=== PATIENT | male | born 1995 | race African-American/Black ===

== ENCOUNTER 2016-12-27 10:27 | Emergency (ER) | payer OTHER ==
--- NOTE | 2016-12-27 12:03 | ED Physician Documentation ---
PD HPI UPPER EXT INJURY - Stated complaint Stated Complaint: LT ARM PX - Chief complaint Chief Complaint: Ext Problem - History obtained from History obtained from: Patient - History of Present Illness Location: Left, Forearm Type of injury: Other (denies recent reptitive use.). No: Fall, Twist, Blunt / blow Timing - onset: How many days ago (3) Timing - duration: Days (3) Timing - details: Gradual onset, Still present (worsening) Worsened by: Moving, Palpating (skin sensitive and feels burning. Tender to touch. 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 No: Swelling, Discolored Similar symptoms before: Has not had sx before Recently seen: Not recently seen Review of Systems Constitutional: denies: Fever, Chills Throat: denies: Sore throat Skin: denies: Rash, Lesions Musculoskeletal: denies: Neck pain, Back pain Neurologic: reports: Focal weakness, Numbness (left anterior forearm and down to little/ring fingers.). denies: Generalized weakness, Near syncope, Headache , Head injury PD PAST MEDICAL HISTORY - Past Medical History Cardiovascular: None Respiratory: Asthma HEENT: None Musculoskeletal: None - Past Surgical History Past Surgical History: No - Present Medications Home Medications: Ambulatory Orders Medication Instructions Recorded Confirmed Dexamethasone [Decadron] 4 mg PO DAILY #5 tablet 12/27/16 Ibuprofen [Motrin] 600 mg PO TID #20 tab 12/27/16 Tramadol HCl 50 mg PO Q6H PRN #20 tablet 12/27/16 - Allergies Allergies/Adverse Reactions: Allergies Allergy/AdvReac Type Severity Reaction Status Date / Time No Known Drug Allergies Allergy Verified 12/27/16 10:34 - Social History Does the pt smoke?: No Smoking Status: Never smoker Does the pt drink ETOH?: No Does the pt have substance abuse?: No - Immunizations Immunizations are current?: Yes - POLST Patient has POLST: No PD ED PE NORMAL - Vitals Vital signs reviewed: Yes - General General: Alert and oriented X 3, No acute distress, Well developed/nourished - HEENT HEENT: Pharynx benign - Neck Neck: Supple, no meningeal sign, No bony TTP, No adenopathy - Cardiac Cardiac: RRR, No murmur - Respiratory Respiratory: Clear bilaterally - Derm Derm: Normal color, Warm and dry, No rash - Extremities Extremities: No edema, Other (left forearm with tenderness to palpation deeper to muscles and also to light touch of skin, causing burning feeling. No rash nor sores. No redness/warmth. elbow and shoulder without swelling, tenderness, and both have good ROM. ) - Neuro Neuro: No motor deficit, Other (less sensation to touch in little and ring fingers as well as ulnar side palm. No edema in fingers. Good color and cap refill. ) Results - Vitals Vitals: Vital Signs - 24 hr 12/27/16 12/27/16 12/27/16 10:31 13:09 14:00 Temperature 36.5 C 37.0 C 36.4 C L Heart Rate 54 L 64 64 Respiratory 14 20 14 Rate Blood Pressure 140/85 H 122/70 124/84 H O2 Saturation 100 99 100 Oxygen O2 Source Room air - Labs Labs: Laboratory Tests 12/27/16 12/27/16 12/27/16 12:30 12:30 12:30 WBC 5.7 RBC 5.03 Hgb 14.5 Hct 43.7 MCV 86.8 MCH 28.8 MCHC 33.1 RDW 14.0 Plt Count 240 MPV 8.2 Neut # 3.3 Lymph # 1.8 [place] # 0.5 Eos # 0.1 Baso # 0.0 Absolute Nucleated RBC 0.00 Nucleated RBCs 0.0 ESR 1 Sodium 139 Potassium 3.7 Chloride 104 Carbon Dioxide 30 Anion Gap 5.0 L BUN 11 Creatinine 0.9 Estimated GFR (MDRD) 129 Glucose 103 H Calcium 9.6 Total Bilirubin 1.2 H AST 23 ALT 20 Alkaline Phosphatase 66 Total Creatine Kinase 166 C-Reactive Protein < 1.0 Total Protein 7.3 Albumin 4.8 Globulin 2.5 Albumin/Globulin Ratio 1.9 Lipase 28 - Rads (name of study) forearm Radiology: Prelim report reviewed, EMP read contemporaneously (no fractures nor bony abnormalities. ) PD MEDICAL DECISION MAKING - ED course Complexity details: considered differential (ineresting to have focal area of pain, skin sensitive, and muscle pain in forearm and ulnar nerve numbness to fingers, without pain in elbow nor shoulder nor neck. CK normal so no muscle breakdown. ESR/CRP normal. WBC normal. Xray normal though was likely to be. with normal tests, presume is some tendonitis with local nerve irritation. To watch for other symptoms such as rash, fevers, sores, etc. ), d/w patient Departure - Departure Disposition: 01 Home, Self Care Clinical Impression: Left forearm pain, Neuropraxia of left ulnar nerve, Forearm tendonitis Condition: Stable Record reviewed to determine appropriate education?: Yes Prescriptions: Dexamethasone [Decadron] 4 mg PO DAILY #5 tablet Ibuprofen [Motrin] 600 mg PO TID #20 tab Tramadol HCl 50 mg PO Q6H PRN #20 tablet PRN Reason: Pain Comments: Wrist brace much of the time for the next week. Ibuprofen 3 times daily. Decadron daily for 5 days also for inflammation. Add Tylenol and Tramadol as needed for pain. Recheck if not better in the next 3-5 days. At this point, I presume it is some inflammation of the muscle and nerve in the forearm ( tendonitis and then causing nerve irritation). Discharge Date/Time: 12/27/16 14:00
[2016-12-27] MEDS ORDERED: HYDROcod/ACETAM 5/325 MG TABLET PO STA (12:19)
[2016-12-27] MEDS ORDERED: IBUPROFEN 600 MG TABLET PO STA (12:19)
[2016-12-27] MEDS ORDERED: DEXAMETHASONE 10 MG/ML VIAL PO STA (12:19)
[2016-12-27] MEDS ORDERED: DEXAMETHASONE 10 MG/ML VIAL ONE (12:27)
[2016-12-27] MEDS ORDERED: CHERRY SYRUP 10 ML UDC PO ONE (12:27)
[2016-12-27] MEDS ORDERED: IBUPROFEN 600 MG TABLET PO ONE (12:27)
[2016-12-27 12:43] LABS: BASOPHILS % (AUTO) 0.5 %; EOSINOPHILS # (AUTO) 0.1 10^3/uL (0.0-0.7); EOSINOPHILS % (AUTO) 1.2 %; HCT - HEMATOCRIT 43.7 % (42.0-52.0); HGB - HEMOGLOBIN 14.5 g/dL (14.0-18.0); LYMPHOCYTES # (AUTO) 1.8 10^3/uL (1.5-3.5); LYMPHOCYTES % (AUTO) 31.1 %; MEAN CORPUSCULAR HEMOGLOBIN 28.8 pg (27.0-31.0); MEAN CORPUSCULAR HGB CONC 33.1 g/dL (32.0-36.0); MEAN CORPUSCULAR VOLUME 86.8 fL (80.0-94.0); MEAN PLATELET VOLUME 8.2 fL (7.4-11.4); MONOCYTES # (AUTO) 0.5 10^3/uL (0.0-1.0); MONOCYTES % (AUTO) 8.1 %; NEUTROPHILS # (AUTO) 3.3 10^3/uL (1.5-6.6); NEUTROPHILS % (AUTO) 59.1 %; RED BLOOD COUNT 5.03 10^6/uL (4.70-6.10); UNCORRECTED WHITE BLOOD COUNT 5.7 x10^3/uL; WHITE BLOOD COUNT 5.7 x10^3/uL (4.8-10.8)
[2016-12-27 12:59] LABS: ALBUMIN/GLOBULIN RATIO 1.9 (1.0-2.2); BILIRUBIN,TOTAL 1.2 mg/dL (0.2-1.0); BUN - BLOOD UREA NITROGEN 11 mg/dL (6-20); CALCIUM 9.6 mg/dL (8.5-10.3); CARBON DIOXIDE - CO2 30 mmol/L (21-32); CHLORIDE 104 mmol/L (101-111); CREATININE 0.9 mg/dL (0.6-1.2); GFR - MDRD 129 (>89); GLUCOSE 103 mg/dL (70-100); LIPASE 28 U/L (22-51); POTASSIUM 3.7 mmol/L (3.5-5.0); SODIUM 139 mmol/L (135-145); TOTAL PROTEIN 7.3 g/dL (6.7-8.2)
[2016-12-27 14:02] VITALS: BP 124/84
--- NOTE | 2016-12-27 14:18 | XRAY Preliminary Report ---
Exam: XR Forearm LT IMPRESSION: Normal forearm radiography. [facility] SITE ID: [id number]
--- NOTE | 2016-12-27 14:20 | XRAY Report ---
EXAM: LEFT FOREARM RADIOGRAPHY EXAM DATE: 12/27/2016 01:00 PM. CLINICAL HISTORY: Left forearm pain. No known injury. COMPARISON: None. TECHNIQUE: 2 views. FINDINGS: Bones: Normal. No fractures or bone lesions. Joints: Normal alignment of the wrist and elbow as visualized. No evident elbow effusion. Soft Tissues: Normal. No soft tissue swelling. IMPRESSION: Normal forearm radiography. [facility] Referring Provider Line: [phone] SITE ID: [id number]
== END 2016-12-27 14:00 | disposition home or self-care (01) ==
LOC: ED 10:27
DX: M79.632 Pain in left forearm (principal); M77.9 Enthesopathy, unspecified; S54.02XA Injury of ulnar nerve at forearm level, left arm, initial encounter; X58.XXXA Exposure to other specified factors, initial encounter
CPT/HCPCS: 36415; 73090; 80053; 82550; 83690; 85025; 85651; 86140; 99283; A9270

== ENCOUNTER 2017-12-08 00:05 | Outpatient (CLI) | payer OTHER | END 2017-12-08 00:06 | disposition critical access hospital (66) | LOC: EMS 00:05 | PROVIDERS: ATTEND Surgery | DX: R40.20 Unspecified coma (principal); R06.81 Apnea, not elsewhere classified | CPT/HCPCS: A0425; A0427 ==

== ENCOUNTER 2017-12-08 00:20 | Emergency (ER) | payer OTHER ==
[2017-12-08] MEDS ORDERED: NALOXONE 0.4 MG/ML VIAL ONE (00:32)
[2017-12-08 00:52] LABS: BASOPHILS # (AUTO) 0.1 10^3/uL (0.0-0.1); BASOPHILS % (AUTO) 0.5 %; EOSINOPHILS # (AUTO) 0.1 10^3/uL (0.0-0.7); EOSINOPHILS % (AUTO) 0.6 %; HGB - HEMOGLOBIN 13.9 g/dL (14.0-18.0); LYMPHOCYTES # (AUTO) 2.3 10^3/uL (1.5-3.5); LYMPHOCYTES % (AUTO) 15.6 %; MEAN CORPUSCULAR HEMOGLOBIN 29.7 pg (27.0-31.0); MEAN CORPUSCULAR HGB CONC 32.8 g/dL (32.0-36.0); MEAN CORPUSCULAR VOLUME 90.4 fL (80.0-94.0); MONOCYTES # (AUTO) 0.5 10^3/uL (0.0-1.0); MONOCYTES % (AUTO) 3.4 %; NEUTROPHILS # (AUTO) 11.7 10^3/uL (1.5-6.6); NEUTROPHILS % (AUTO) 79.9 %; PLT - PLATELET COUNT 212 10^3/uL (130-450); RED BLOOD COUNT 4.68 10^6/uL (4.70-6.10); RED CELL DISTRIBUTION WIDTH 14.1 % (12.0-15.0); WHITE BLOOD COUNT 14.7 x10^3/uL (4.8-10.8)
[2017-12-08 00:57] LABS: ALBUMIN 3.8 g/dL (3.2-5.5); ALBUMIN/GLOBULIN RATIO 1.5 (1.0-2.2); ALKALINE PHOSPHATASE 58 IU/L (42-121); ALT ALANINE AMINOTRANSFERASE 32 IU/L (10-60); AST ASPARTATE AMINOTRANSFERASE 43 IU/L (10-42); BILIRUBIN,TOTAL 0.7 mg/dL (0.2-1.0); BUN - BLOOD UREA NITROGEN 10 mg/dL (6-20); CALCIUM 8.2 mg/dL (8.5-10.3); CARBON DIOXIDE - CO2 27 mmol/L (21-32); CHLORIDE 106 mmol/L (101-111); GFR - MDRD 114 (>89); GLUCOSE 147 mg/dL (70-100); LIPASE 28 U/L (22-51); SALICYLATE < 6.0 mg/dL; SODIUM 139 mmol/L (135-145); TOTAL PROTEIN 6.3 g/dL (6.7-8.2)
[2017-12-08 00:58] LABS: ACETAMINOPHEN < 10 ug/mL (10-30)
--- NOTE | 2017-12-08 02:30 | ED Physician Documentation ---
PD HPI OVERDOSE - Stated complaint Stated Complaint: OD - Chief complaint Chief Complaint: MHE - History obtained from History obtained from: EMS - History of Present Illness Timing - onset: Today Subtance(s) ingested: Multiple, Narcotic, Benzo Associated symptoms: Resp depression, Unresponsive. No: Cardiac arrest Contributing factors: Accidental Treatment [employer]ER: Narcan Similar symptoms before: Has not had sx before Recently seen: Not recently seen - Additional information Additional information: Patient is a 21 year old male brought in by ems for overdose. According to ems police were called by patient's friends because he became unresponsive. When police arrived patient was not breathing. ems arrived and was about to intubate but gave narcan and the patient began to awake. Patient reportedly took fentanyl and xanax. Review of Systems Unable to obtain: Unresponsive PD PAST MEDICAL HISTORY - Past Medical History Cardiovascular: None Respiratory: Asthma HEENT: None Musculoskeletal: None - Past Surgical History Past Surgical History: No - Present Medications Home Medications: Ambulatory Orders Medication Instructions Recorded Confirmed Dexamethasone [Decadron] 4 mg PO DAILY #5 tablet 12/27/16 Ibuprofen [Motrin] 600 mg PO TID #20 tab 12/27/16 Tramadol HCl 50 mg PO Q6H PRN #20 tablet 12/27/16 - Allergies Allergies/Adverse Reactions: Allergies Allergy/AdvReac Type Severity Reaction Status Date / Time No Known Drug Allergies Allergy Verified 12/08/17 00:30 - Social History Does the pt smoke?: No Smoking Status: Never smoker Does the pt drink ETOH?: No Does the pt have substance abuse?: Yes Substance Use and Type: Marijuana, Other - Immunizations Immunizations are current?: Yes - POLST Patient has POLST: No PD ED PE NORMAL - Vitals Vital signs reviewed: Yes - General General: Well developed/nourished - HEENT HEENT: Atraumatic - Neck Neck: Supple, no meningeal sign - Cardiac Cardiac: RRR, No murmur - Respiratory Respiratory: No respiratory distress - Abdomen Abdomen: Soft, Non distended - Derm Derm: Normal color, No rash - Extremities Extremities: No deformity PD ED PE EXPANDED - GCS Eye Opening: To Pain Motor: Withdraws to Pain Verbal: Confused Total: 10 Results - Vitals Vitals: Vital Signs - 24 hr 12/08/17 12/08/17 12/08/17 00:21 00:41 01:58 Temperature 36 C L Heart Rate 94 88 86 Respiratory 28 H 18 20 Rate Blood Pressure 103/73 107/76 105/56 L O2 Saturation 88 L 98 92 12/08/17 12/08/17 02:45 03:28 Temperature Heart Rate 81 80 Respiratory 18 18 Rate Blood Pressure 94/64 100/64 O2 Saturation 94 95 Oxygen O2 Source Room air - Labs Labs: Laboratory Tests 12/08/17 12/08/17 12/08/17 00:35 00:35 04:15 WBC 14.7 H RBC 4.68 L Hgb 13.9 L Hct 42.3 MCV 90.4 MCH 29.7 MCHC 32.8 RDW 14.1 Plt Count 212 MPV 8.0 Neut # 11.7 H Lymph # 2.3 [place] # 0.5 Eos # 0.1 Baso # 0.1 Absolute Nucleated RBC 0.00 Nucleated RBC % 0.0 Sodium 139 Potassium 3.8 Chloride 106 Carbon Dioxide 27 Anion Gap 6.0 BUN 10 Creatinine 1.0 Estimated GFR (MDRD) 114 Glucose 147 H Calcium 8.2 L Total Bilirubin 0.7 AST 43 H ALT 32 Alkaline Phosphatase 58 Total Protein 6.3 L Albumin 3.8 Globulin 2.5 Albumin/Globulin Ratio 1.5 Lipase 28 Salicylates < 6.0 Urine Opiates Screen NEGATIVE Ur Oxycodone Screen NEGATIVE Urine Methadone Screen NEGATIVE Ur Propoxyphene Screen NEGATIVE Acetaminophen < 10 L Ur Barbiturates Screen NEGATIVE Ur Tricyclics Screen NEGATIVE Ur Phencyclidine Scrn NEGATIVE Ur Amphetamine Screen NEGATIVE U Methamphetamines Scrn NEGATIVE U Benzodiazepines Scrn POSITIVE H Urine Cocaine Screen NEGATIVE U Cannabinoids Screen POSITIVE H Ethyl Alcohol < 5.0 PD MEDICAL DECISION MAKING - ED course Complexity details: reviewed old records, reviewed results, re-evaluated patient , considered differential, d/w patient ED course: Patient was seen and examined at bedside. labs were drawn. patient was treated with supplemental oxygen. patient was maintaining his own airway and was arousable. patient was treated with supplemental oxygen. patient's tox screen was negative for opiates, and he is not the only person who has presented recently with an opiate toxidrome but negative drug screen. patient was observed overnight. In the morning patient was awake, alert and oriented. Patient was able to attend to conversation and ambulate without difficulty. Patient required no further work up and was stable for discharge with outpatient follow up. Departure - Departure Disposition: 01 Home, Self Care Clinical Impression: Accidental drug overdose Condition: Good Instructions: ED Overdose Accidental Follow-Up: primary,care provider [Other] - Within 3 Days Comments: Your symptoms today were caused by a drug overdose. You almost and hopefully this is a wake-up call. [place] You should not be abusing drugs in generally but it if even riskier right now. You may return to the emergency department at any time for new, worsening or uncontrollable symptoms.
[2017-12-08 03:28] VITALS: BP 100/64
[2017-12-08 04:26] LABS: MUDS CUTOFF CONCENTRATIONS CUTOFF CONC BELOW:
[2017-12-08 04:48] LABS: AMPHETAMINE SCREEN,URINE NEGATIVE (NEGATIVE); BENZODIAZEPINES SCREEN, URINE POSITIVE (NEGATIVE); COCAINE SCREEN URINE NEGATIVE (NEGATIVE); METHADONE SCREEN, URINE NEGATIVE (NEGATIVE); METHAMPHETAMINES SCREEN, URINE NEGATIVE (NEGATIVE); OPIATE SCREEN, URINE NEGATIVE (NEGATIVE); OXYCODONE SCREEN, URINE NEGATIVE (NEGATIVE); PROPOXYPHENE SCREEN, URINE NEGATIVE (NEGATIVE); TRICYCLIC ANTIDEPRESSANT,URINE NEGATIVE (NEGATIVE)
== END 2017-12-08 05:28 | disposition home or self-care (01) ==
LOC: EDUNIT# → ED 00:20
DX: T42.4X1A Poisoning by benzodiazepines, accidental (unintentional), initial encounter (principal); T40.4X1A Poisoning by other synthetic narcotics, accidental (unintentional), initial encounter; J45.909 Unspecified asthma, uncomplicated
CPT/HCPCS: 36415; 80053; 80306; 80307; 80320; 80329; 83690; 85025; 99283; 99284

== ENCOUNTER 2017-12-13 16:03 | Emergency (ER) | payer OTHER ==
[2017-12-13 16:15] VITALS: BP 120/65
[2017-12-13] MEDS ORDERED: LORazepam 0.5 MG TABLET PO STA (16:36)
--- NOTE | 2017-12-13 16:38 | ED Physician Documentation ---
History of Present Illness - Stated complaint Stated Complaint: ANXIETY - Chief complaint Chief Complaint: General - History obtained from History obtained from: Patient, Family - History of Present Illness Timing: How many days ago (several days) Pain level max: 0 Pain level now: 0 Improved by: ativan in the past Worsened by: nothing - Treatment prior to arrival Treatment prior to arrival: Patient is a 22-year-old male who presents to the emergency department complaining of increasing anxiety for the past few weeks. This been worse over the past few days. He is accompanied by his mother today. Has a long-standing history of anxiety and was on Lexapro and Ativan when he was living in [place], but has now moved back here. He is still on Lexapro but does not have any Ativan. Has an appointment with his PCP in 9 days. He was also recently seen here for an accidental overdose of opiates. States that he took a friend's Percocet that was apparently laced with fentanyl. He denies any suicidal or homicidal ideation. Review of Systems Constitutional: denies: Fever, Chills Ears: denies: Ear pain Nose: denies: Rhinorrhea / runny nose, Congestion Throat: denies: Sore throat Cardiac: denies: Chest pain / pressure Respiratory: denies: Cough GI: denies: Nausea, Vomiting, Diarrhea Skin: denies: Rash Musculoskeletal: denies: Neck pain, Back pain Neurologic: denies: Headache Psychiatric: reports: Anxiety. denies: Depressed, Suicidal, Homicidal, Hallucinations, Delusions PD PAST MEDICAL HISTORY - Past Medical History Past Medical History: Yes Cardiovascular: None Respiratory: Asthma HEENT: None Musculoskeletal: None - Past Surgical History Past Surgical History: No - Present Medications Home Medications: Ambulatory Orders Medication Instructions Recorded Confirmed Escitalopram [Lexapro] 12/13/17 Lorazepam [Ativan] 1 mg PO BID PRN #9 tablet 12/13/17 - Allergies Allergies/Adverse Reactions: Allergies Allergy/AdvReac Type Severity Reaction Status Date / Time No Known Drug Allergies Allergy Verified 12/13/17 16:14 - Social History Does the pt smoke?: No Smoking Status: Never smoker Does the pt drink ETOH?: No Does the pt have substance abuse?: Yes - Immunizations Immunizations are current?: Yes - POLST Patient has POLST: No PD ED PE NORMAL - Vitals Vital signs reviewed: Yes - General General: Alert and oriented X 3, No acute distress, Well developed/nourished - HEENT HEENT: PERRL, Moist mucous membranes - Neck Neck: Supple, no meningeal sign - Cardiac Cardiac: RRR, Strong equal pulses - Respiratory Respiratory: No respiratory distress, Clear bilaterally - Abdomen Abdomen: Soft, Non tender, Non distended - Derm Derm: Warm and dry - Extremities Extremities: No edema, No calf tenderness / cord - Neuro Neuro: Alert and oriented X 3 - Psych Psych: Normal mood, Normal affect Results - Vitals Vitals: Oxygen O2 Source Room air PD MEDICAL DECISION MAKING - ED course Complexity details: reviewed old records, considered differential, d/w patient, d/w family ED course: Patient is a 22-year-old male with a long history of anxiety. He feels better after a dose of Ativan here. We will prescribe 9 pills for him to last until he sees his primary care provider. Given his recent accidental overdose, his mother will dispense the pills to him. She is comfortable with this as is he. He is not suicidal or homicidal. Patient and family counseled regarding signs and symptoms for which I believe and urgent re-evaluation would be necessary. Patient with good understanding of and agreement to plan and is comfortable going home at this time This document was made in part using voice recognition software. While efforts are made to proofread this document, sound alike and grammatical errors may occur. Departure - Departure Disposition: 01 Home, Self Care Clinical Impression: Anxiety Condition: Good Instructions: ED Panic Attack Follow-Up: Carmencita Rogers NP [Primary Care Provider] - Within 1 week Prescriptions: Lorazepam [Ativan] 1 mg PO BID PRN #9 tablet PRN Reason: Anxiety Comments: Follow-up with your doctor for further medications. Return if you worsen. Discharge Date/Time: 12/13/17 16:53
== END 2017-12-13 16:53 | disposition home or self-care (01) ==
LOC: ED 16:03
DX: F41.9 Anxiety disorder, unspecified (principal)
CPT/HCPCS: 99283; A9270

== ENCOUNTER 2017-12-30 08:55 | Emergency (ER) | payer OTHER ==
[2017-12-30] MEDS ORDERED: LORazepam 2 MG/ML VIAL IM STA (12:03)
--- NOTE | 2017-12-30 12:06 | ED Physician Documentation ---
PD HPI MHE - Stated complaint Stated Complaint: PANIC ATTACK - Chief complaint Chief Complaint: MHE - History obtained from History obtained from: Patient, Family (mom) - History of Present Illness Primary symptom: Anxiety (22-year-old gentleman has been dealing with anxiety for the last year because of some family issues. He talked to a psychiatrist in March back in [place], where he was going to college. He was started on escitalopram at 10 mg a day and given a few weeks worth of lorazepam until the S -Citalopram kicked in. He was doing well on that for a while but feels like he needs to up the dose of the escitalopram, and he saw his primary care physician who prescribed him hydroxyzine which is not helping with the anxiety. He denies suicidal or homicidal ideation. We discussed potentially hospitalization which she is not interested in at this time.) Review of Systems Constitutional: denies: Fever, Chills, Myalgias Cardiac: reports: Reviewed and negative Respiratory: reports: Reviewed and negative GI: reports: Reviewed and negative PD PAST MEDICAL HISTORY - Past Medical History Cardiovascular: None Respiratory: Asthma HEENT: None Musculoskeletal: None - Past Surgical History Past Surgical History: No - Present Medications Home Medications: Ambulatory Orders Medication Instructions Recorded Confirmed Escitalopram [Lexapro] 10 mg 12/13/17 Escitalopram [Lexapro] 20 mg PO DAILY #30 tablet 12/30/17 Lorazepam [Ativan] 1 mg PO TID PRN #30 tablet 12/30/17 hydrOXYzine HCl [Hydroxyzine HCl] 25 mg TID 12/30/17 12/30/17 - Allergies Allergies/Adverse Reactions: Allergies Allergy/AdvReac Type Severity Reaction Status Date / Time No Known Drug Allergies Allergy Verified 12/13/17 16:14 - Social History Does the pt smoke?: No Smoking Status: Never smoker Does the pt drink ETOH?: No Does the pt have substance abuse?: Yes - Immunizations Immunizations are current?: Yes - POLST Patient has POLST: No PD ED PE NORMAL - Vitals Vital signs reviewed: Yes - General General: Alert and oriented X 3, No acute distress (He is slightly hypervigilant and anxious but calm and cooperative.) - HEENT HEENT: PERRL, EOMI - Neuro Neuro: Alert and oriented X 3 Eye Opening: Spontaneous Motor: Obeys Commands Verbal: Oriented GCS Score: 15 Results - Vitals Vitals: Vital Signs - 24 hr 12/30/17 09:03 Temperature 36.8 C Heart Rate 73 Respiratory 16 Rate Blood Pressure 116/74 O2 Saturation 100 Oxygen O2 Source Room air PD MEDICAL DECISION MAKING - ED course ED course: We discussed potentially hospitalization, however he feels that if he can up his dose of escitalopram and have some Lorazepam to bridge him until that is kicking in that would be sufficient. - Sepsis Event Vital Signs: Vital Signs - 24 hr 12/30/17 09:03 Temperature 36.8 C Heart Rate 73 Respiratory 16 Rate Blood Pressure 116/74 O2 Saturation 100 Oxygen O2 Source Room air Departure - Departure Disposition: 01 Home, Self Care Clinical Impression: Anxiety Condition: Good Record reviewed to determine appropriate education?: Yes Instructions: ED Panic Attack Prescriptions: Escitalopram [Lexapro] 20 mg PO DAILY #30 tablet Lorazepam [Ativan] 1 mg PO TID PRN #30 tablet PRN Reason: Anxiety Comments: Return if worsening or if new symptoms develop or if you would like to reconsider hospitalization. Consider following up with a psychologist, there is a in office in [facility], the phone number is [phone].
[2017-12-30 12:25] VITALS: BP 122/60
== END 2017-12-30 12:30 | disposition home or self-care (01) ==
LOC: ED 08:55
DX: F41.9 Anxiety disorder, unspecified (principal)
CPT/HCPCS: 96372; 99282; 99283; J2060

== ENCOUNTER 2018-01-28 12:33 | Emergency (ER) | payer OTHER ==
[2018-01-28 12:45] VITALS: BP 138/74
--- NOTE | 2018-01-28 12:58 | ED Physician Documentation ---
PD HPI MHE - Stated complaint Stated Complaint: PANIC ATTACK - Chief complaint Chief Complaint: MHE - History obtained from History obtained from: Patient - History of Present Illness Primary symptom: Anxiety (He has a history of anxiety, he was treated with Lexapro, but stopped about a days ago because he did not like how it made him feel. He like to be off of all term long-term medications. He has been sleeping well and not eating well but denies suicidal or homicidal ideation or hallucinations) Review of Systems Constitutional: reports: Sweats. denies: Fever, Chills Cardiac: reports: Reviewed and negative Respiratory: reports: Reviewed and negative GI: reports: Reviewed and negative PD PAST MEDICAL HISTORY - Past Medical History Cardiovascular: None Respiratory: Asthma HEENT: None Musculoskeletal: None - Past Surgical History Past Surgical History: No - Present Medications Home Medications: Ambulatory Orders Medication Instructions Recorded Confirmed Lorazepam [Ativan] 1 mg PO TID PRN #15 tablet 01/28/18 - Allergies Allergies/Adverse Reactions: Allergies Allergy/AdvReac Type Severity Reaction Status Date / Time No Known Drug Allergies Allergy Verified 01/28/18 12:44 - Social History Does the pt smoke?: No Smoking Status: Never smoker Does the pt drink ETOH?: No Does the pt have substance abuse?: Yes - Immunizations Immunizations are current?: Yes - POLST Patient has POLST: No PD ED PE NORMAL - Vitals Vital signs reviewed: Yes - General General: Alert and oriented X 3, Other (Slightly pressured speech but A good historian without tangential thoughts or flight of ideas.) - HEENT HEENT: PERRL, EOMI - Neuro Neuro: Alert and oriented X 3, Normal speech - Psych Psych: Normal mood, Normal affect Results - Vitals Vitals: Vital Signs - 24 hr 01/28/18 12:42 Temperature 36.9 C Heart Rate 97 Respiratory 18 Rate Blood Pressure 138/74 H O2 Saturation 100 Oxygen O2 Source Room air PD MEDICAL DECISION MAKING - ED course ED course: Discussed that in the long-term, long-term medications such as SSRIs are probably more efficacious for him. However he just got off of Lexapro and does not want to restart something like that at this juncture. - Sepsis Event Vital Signs: Vital Signs - 24 hr 01/28/18 12:42 Temperature 36.9 C Heart Rate 97 Respiratory 18 Rate Blood Pressure 138/74 H O2 Saturation 100 Oxygen O2 Source Room air Departure - Departure Disposition: 01 Home, Self Care Clinical Impression: Anxiety Condition: Good Record reviewed to determine appropriate education?: Yes Instructions: ED Panic Attack Prescriptions: Lorazepam [Ativan] 1 mg PO TID PRN #15 tablet PRN Reason: Anxiety Comments: As discussed, need to follow-up with a mental health counselor and prescriber for further evaluation and treatment, one option would be to [facility], the phone number is [phone].
== END 2018-01-28 13:00 | disposition home or self-care (01) ==
LOC: ED 12:33
DX: F41.9 Anxiety disorder, unspecified (principal)
CPT/HCPCS: 99283

== ENCOUNTER 2018-07-02 18:30 | Outpatient (CLI) | payer OTHER | END 2018-07-02 18:31 | disposition home or self-care (01) | LOC: LAB 18:30 | PROVIDERS: ATTEND Pathology Blood Banking & Transfusion Medicine | DX: Z01.89 Encounter for other specified special examinations (principal) ==